=== PATIENT | female | born 1985 | race Caucasian/White ===

== ENCOUNTER → 2020-05-30 12:09 | Outpatient (CLI) | payer BC, SELFPAY ==
--- NOTE | ~2020-05-30 | MR_ITS ---
EXAMINATION: MR thoracic spine wo/w con EXAM DATE: 05/30/2020 14:39 INDICATION: History of cerebral spinal fluid leak. Generalized headaches. TECHNIQUE: Multi-sequential, multiplanar MR images of the thoracic spine were obtained without contra st. Sagittal T1, T2, T2 fat saturation, axial T2 weighted images reviewed. Axial T1 weighted sequenc e. Patient was then injected with 12 mL Multihance intravenous contrast and reimaged. Postcontrast axial and sagittal T1-weighted fat saturation sequences were obtained. There are no prior studies for comparison. FINDINGS: There are scattered focal signal abnormalities consistent with hemangiomata, otherwise with out focal suspicious marrow signal abnormalities. The vertebral bodies are aligned in the AP dimensio n. Vertebral body and disc heights are well-maintained. The spinal cord signal intensity and intrinsi c morphology is normal. Thoracic neural foramen and spinal canal widely patent. Mild upper thoracic d extrocurvature, lower thoracic levocurvature. Paraspinal soft tissue is unremarkable, no paraspinal f luid collection. There are no areas of abnormal enhancement on the post contrast images. IMPRESSION: Mild thoracic curvature, could be positional or scoliosis. Otherwise unremarkable exam. Reviewed, dictated and finalized at location A. IMPRESSION: Mild thoracic curvature, could be positional or scoliosis. Otherwi se unremarkable exam.
--- NOTE | ~2020-05-30 | MR_ITS ---
EXAMINATION: MR brain/brain stem wo/w con DATE: 05/30/2020 14:43 INDICATION: Headache. TECHNIQUE: Magnetic resonance imaging (MRI) of the brain and brainstem was performed without and with 12 mL MultiHance intravenous contrast. Sequences included sagittal and axial T1-weighted FSE, axial diffusion-weighted FS EPI, axial T2*-weighted GRE, axial T2-weighted FLAIR Propeller, and axial T2-we ighted Propeller. Postcontrast sequences included axial and coronal T1-weighted FSE. Apparent diffusi on coefficient (ADC) maps were created. COMPARISON: Brain MRI 11/10/2018 FINDINGS: The cerebellar tonsils extend 16 mm inferior to foramen magnum, increased from 12 mm on the prior exam. The optic chiasm is draped over the dorsum sellae, and the suprasellar cistern is small, which is chronic. Pachymeningeal thickening and enhancement is less pronounced than on the prior exa m. There is no intracranial hemorrhage, acute infarction, or abnormal intracranial mass lesion. The v entricles are normal in size. The paranasal sinuses are clear. The mastoid air cells are normal. The orbits are normal. IMPRESSION: 1. Worsened tonsillar herniation and improved pachymeningeal thickening and enhancement. These findin gs may be secondary to intracranial hypotension. If the tonsillar herniation is from long-standing Ch iari I malformation, the pachymeningeal thickening and enhancement may be from prior lumbar puncture. Reviewed, dictated and finalized at location A. IMPRESSION: 1. Worsened tonsillar herniation and improved pachymeningeal thickening and enh ancement. These findings may be secondary to intracranial hypotension. If the t onsillar herniation is from long-standing Chiari I malformation, the pachymenin geal thickening and enhancement may be from prior lumbar puncture.
--- NOTE | ~2020-05-30 | MR_ITS ---
EXAMINATION: MR lumbar spine wo/w con EXAM DATE: 05/30/2020 14:22 INDICATION: History of cerebral spinal fluid leak. Generalized headaches. TECHNIQUE: Multi-sequential, multiplanar MR images of the lumbar spine were obtained without contrast . Sagittal T1, T2, T2 fat saturation images. Axial T2 weighted images. Axial T1 weighted sequence. Patient was then injected with 12 mL Multihance intravenous contrast and reimaged. Postcontrast axi al and sagittal T1-weighted fat saturation sequences were obtained. There is no prior study for ananda zamora. FINDINGS: The vertebral bodies are aligned in the AP dimension. There is mild disc disease L4-5 and L 5-S1. There is 8 millimeter hemangioma within the L1 vertebral body. The conus medullaris terminates at the L1/2 level and has normal signal intensity and morphology. Paraspinal soft tissue is unremark able, no paraspinal fluid collection. There are no areas of abnormal enhancement on the post contrast images. Level by level evaluation: T12-L1: Disc does not extend beyond the endplate margin. Facet arthropathy: None. Neural foraminal stenosis: No stenosis. Central canal stenosis: No stenosis. L1-L2: Disc does not extend beyond the endplate margin. Facet arthropathy: None. Neural foraminal stenosis: No stenosis. Central canal stenosis: No stenosis. L2-L3: Disc does not extend beyond the endplate margin. Facet arthropathy: None. Neural foraminal stenosis: No stenosis. Central canal stenosis: No stenosis. L3-L4: Disc does not extend beyond the endplate margin. Facet arthropathy: Minimal. Neural foraminal stenosis: No stenosis. Central canal stenosis: No stenosis. L4-L5: There is a mild diffuse disc bulge, small central annular protrusion, fissure Facet arthropathy: Minimal. Neural foraminal stenosis: No stenosis. Central canal stenosis: No stenosis. L5-S1: Small central protrusion. Facet arthropathy: Minimal. Neural foraminal stenosis: No stenosis. Central canal stenosis: No stenosis. IMPRESSION: 1. Mild lower lumbar spondylosis. Reviewed, dictated and finalized at location A.
--- NOTE | ~2020-05-30 | MR_ITS ---
EXAMINATION: MR cervical spine wo/w con EXAM DATE: 05/30/2020 14:40 INDICATION: Headaches. History of cerebral spinal fluid leak. TECHNIQUE: Multi-sequential, multiplanar MR images of the cervical spine were obtained without contra st. Axial T2, axial T2 MERGE sequence. Sagittal T1, T2, T2 fat saturation images also obtained. Axi al T1 weighted sequence. Patient was then injected with 12 mL Multihance intravenous contrast and re imaged. Postcontrast axial and sagittal T1-weighted fat saturation sequences were obtained. There i s no prior study for comparison. FINDINGS: There are scattered focal signal abnormalities consistent with hemangiomata, otherwise wit hout focal suspicious marrow signal abnormalities. The spinal cord signal intensity and intrinsic mor phology is normal. Cervicomedullary junction is normal in appearance. The vertebral bodies are aligne d in the AP dimension. Vertebral body and disc heights are well-maintained. Paraspinal soft tissue is unremarkable. There are no areas of abnormal enhancement on the post contrast images. Level by level evaluation: C2-C3: Disc does not extend beyond the endplate margin. Uncovertebral joint arthropathy: None. Facet joint arthropathy: Mild right. Neural foraminal stenosis: No stenosis. Central canal stenosis: No stenosis. C3-C4: Disc does not extend beyond the endplate margin. Uncovertebral joint arthropathy: None. Facet joint arthropathy: Minimal bilateral. Neural foraminal stenosis: No stenosis. Central canal stenosis: No stenosis. C4-C5: Disc does not extend beyond the endplate margin. Uncovertebral joint arthropathy: No stenosis. Facet joint arthropathy: Minimal bilateral. Neural foraminal stenosis: No stenosis. Central canal stenosis: No stenosis. C5-C6: Disc does not extend beyond the endplate margin. Uncovertebral joint arthropathy: Mild left. Facet joint arthropathy: Minimal bilateral. Neural foraminal stenosis: No stenosis. Central canal stenosis: No stenosis. C6-C7: Disc does not extend beyond the endplate margin. Uncovertebral joint arthropathy: Mild bilateral. Facet joint arthropathy: Minimal bilateral. Neural foraminal stenosis: No stenosis. Central canal stenosis: No stenosis. C7-T1: Disc does not extend beyond the endplate margin. Uncovertebral joint arthropathy: None. Facet joint arthropathy: Minimal bilateral. Neural foraminal stenosis: No stenosis. Central canal stenosis: No stenosis. IMPRESSION: 1. Minimal cervical spondylosis. 2. Normal cord signal. Reviewed, dictated and finalized at location A.
[2020-05-30 13:43] LABS: Estimated Glomerular Filt Rate > 60
== END ==
PROVIDERS: PCP Emergency Medicine; Visit Provider Emergency Medicine
DX: G96.0 Cerebrospinal fluid leak (principal); M47.896 Other spondylosis, lumbar region
CPT/HCPCS: 70553; 72156; 72157; 72158; A9577